=== PATIENT | female | born 1985 | race African-American/Black ===

== ENCOUNTER 2018-05-10 07:00 | Inpatient (IN) | payer OTHER ==
[~2018-05-10] VITALS: Ht 165.1 cm; Wt 97.1 kg
[~2018-05-10 07:00] MED LIST: REGLAN10 M1 PO
[2018-05-19] MEDS ORDERED: PRENATAL TABLE1 EAC2 PO (08:41)
[2018-05-19 09:27] LABS: ABSOLUTE BASOPHIL COUNT 0 /CUMM (0.0-0.2); ABSOLUTE EOSINOPHIL COUNT 0 /CUMM (0.0-0.7); ABSOLUTE GRANULOCYTE CT 6.6 /CUMM (1.4-6.5); ABSOLUTE LYMPH COUNT 2.7 /CUMM (1.2-3.4); ABSOLUTE MONOCYTE COUNT 0.6 /CUMM (0.10-0.60); BASOPHIL % 0.3 % (0.0-2.0); EOSINOPHIL % 0.3 % (0-5); GRANULOCYTE % 66.2 % (42.2-75.2); HEMATOCRIT 37.3 % (37-47); MEAN CORPUSCULAR HGB CONC 33.7 G/DL (33.0-37.0); MEAN CORPUSCULAR VOLUME 89.1 FL (81.0-99.0); MEAN PLATELET VOLUME 8.6 FL (7.4-10.4); PLATELET COUNT 237 /CUMM (130-400); RBC DISTRIBUTION WIDTH 13.1 % (11.5-14.5); RED BLOOD CELL CT 4.19 /CUMM (4.20-5.40)
--- NOTE | 2018-05-19 10:33 | History & Physical Pre-Op ---
General Information and HPI History of Present Illness: 33-year-old 4 para 2011 at at 40-5/7 weeks gestation with a history of previous section was scheduled for section and patient has been highly motivated for a trial of labor. She has been on numerous occasions given opportunity change her mind. She's been given the risks and benefits of a trial of labor increasing including increasing morbidity rupture of the uterus depth to her and her need for transfusions need for antibiotics need for anesthesia. 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 5 oz. Pelvic 4 cm 80% rupture membranes with clear fluid vertex 0 Assessment/Plan Assessment/Plan: Assessment is term induction with plan Pitocin after rupture of membranes observe for As Ranked By This Provider Problem List: 1.
--- NOTE | 2018-05-19 12:45 | PN- Obstetrical ---
Subjective Subjective: HAS BEEN WALKING DOESNT FEEL CTX Objective Last 24 Hrs of Vital Signs/I&O PER CHART Intake & Output 05/19 1600 05/19 0800 05/19 0000 Intake Total Output Total Balance Patient 214 lb Weight Physical Exam: OBESE BF IN NAD ABD SOFT NT EFW 8LB Obstetric Exam Dilation (cm): 4 Effacement (%): 80 Station: 0 Membranes: AROM Fluid: clear Multiple Gestation? No Contractions: Q3-7 MINUTES Assessment/Plan Assessment/Plan ASSESS TERM TOLAC PLAN PITOCIN RISKS REVIEWED BLEEDING INFECTION
--- NOTE | 2018-05-19 16:03 | PN- Obstetrical ---
Subjective Subjective: C/O PAIN Objective Last 24 Hrs of Vital Signs/I&O Intake & Output 05/19 1600 05/19 0800 05/19 0000 Intake Total Output Total Balance Patient 214 lb Weight Physical Exam: PE WELL BUILT BF IN NAD ABD SOFT [id number] Obstetric Exam Dilation (cm): -5 Effacement (%): 90 Station: 0 Membranes: AROM Fluid: clear Multiple Gestation? No Contractions: Q 3MINUTES Assessment/Plan Assessment/Plan ASSESS TOLAC AT 40PLUS WEEKS PLAN CONT PPC
--- NOTE | 2018-05-19 18:08 | PN- Obstetrical ---
Subjective Subjective: NO COMPLAINTS Objective Last 24 Hrs of Vital Signs/I&O Intake & Output 05/19 1600 05/19 0800 05/19 0000 Intake Total Output Total Balance Patient 214 lb Weight Physical Exam: PE OBESE BF IN LABOR ABD SOFT [id number] LBS Obstetric Exam Dilation (cm): 6 Effacement (%): 100 Station: 0 Membranes: AROM Fluid: clear Multiple Gestation? No Contractions: Q 3 MINUTES Assessment/Plan Assessment/Plan ASSESS TOLAC AT 40 WEEKS PLAN OBSERVE CLOSLY
--- NOTE | 2018-05-19 19:55 | PN- Obstetrical ---
Subjective Subjective: NO COMPLAINTS Objective Last 24 Hrs of Vital Signs/I&O Intake & Output 05/19 1600 05/19 0800 05/19 0000 Intake Total Output Total Balance Patient 214 lb Weight Physical Exam: PE OBESE BF IN NAD ABD SOFT NT FUNDUS FIRM NT Obstetric Exam Dilation (cm): 8 Effacement (%): 100 Station: 0 Membranes: AROM Fluid: clear Multiple Gestation? No Contractions: Q 3 MIN Assessment/Plan Assessment/Plan ASSESS TOLAC AT 40 WEEKS PLAN CONT PITOCIN OBSERVE FOR
--- NOTE | 2018-05-19 22:31 | Labor & Delivery Summary ---
Delivery Summary Vaginal Delivery: Vaginal: vertex : Station/Position at [place]: BEST Placenta: Placenta: abnormal, TORN SURFACE SUSPECTED ACRETA Anesthesia: block Additional Comments: BEST 3 VESS EL CORD SHORT CORD OVER ANTERIOR LACERATION . DELIVERY FILMED WITH NURSES AND TECH KNOWLEDGE .THIS WAS UNKNOWN TO MD. PLACENTA BY CCT WITH TORN SURFACE . UTERIN SCAR INTACT .ANTERIOR WALL OF UTERUS IRREGULAR.A+
[2018-05-19 23:47] VITALS: BP 110/63
[2018-05-20 08:40] LABS: ABSOLUTE BASOPHIL COUNT 0 /CUMM (0.0-0.2); ABSOLUTE EOSINOPHIL COUNT 0 /CUMM (0.0-0.7); ABSOLUTE LYMPH COUNT 2.2 /CUMM (1.2-3.4); ABSOLUTE MONOCYTE COUNT 0.7 /CUMM (0.10-0.60); BASOPHIL % 0.3 % (0.0-2.0); EOSINOPHIL % 0.1 % (0-5); GRANULOCYTE % 80.4 % (42.2-75.2); MEAN CORPUSCULAR HGB 30.4 PG (27.0-31.0); MEAN CORPUSCULAR HGB CONC 34.1 G/DL (33.0-37.0); MEAN PLATELET VOLUME 8.1 FL (7.4-10.4); PLATELET COUNT 218 /CUMM (130-400); RED BLOOD CELL CT 4.05 /CUMM (4.20-5.40); WHITE BLOOD CELL COUNT 14.9 /CUMM (4.8-10.8)
[2018-05-20] MEDS ORDERED: IBUPROFEN800 M1 PO (08:57)
--- NOTE | 2018-05-20 09:04 | PN- Post Delivery/GYN ---
Subjective Subjective: NO COMPLAINTS Objective Last 24 Hrs of Vital Signs/I&O Vital Signs Date Time Temp Pulse Resp B/P B/P Pulse O2 O2 Flow FiO2 Mean Ox Delivery Rate 05/19 2347 110/63 Physical Exam: PE WELL BUILT BF IN NAD ABD SOFT NT FUNDUS FIRM NT EXT - EDEMA -HOMANS Assessment/Plan Assessment/Plan ASSESS S/PVBAC PLAN CONT PPC
== END 2018-05-21 11:40 | DRG 560 ==
LOC: GNO 05-19 08:23
PROVIDERS: Specialist
PROC: 10E0XZZ Delivery of Products of Conception, External Approach (ICD-10-PCS; principal; 2018-05-19)
PROC: 10907ZC Drainage of Amniotic Fluid, Therapeutic from Products of Conception, Via Natural or Artificial Opening (ICD-10-PCS; 2018-05-19)
DX: O34.211 Maternal care for low transverse scar from previous cesarean delivery (principal); N85.8 Other specified noninflammatory disorders of uterus; Z3A.40 40 weeks gestation of pregnancy; Z37.0 Single live birth; O69.3XX0 Labor and delivery complicated by short cord, not applicable or unspecified; Z75.2 Other waiting period for investigation and treatment; O99.324 Drug use complicating childbirth; F12.90 Cannabis use, unspecified, uncomplicated
CPT/HCPCS: GNOP; GNOS; 80307; 81003; 87086; J2405; J7120; Q2036